=== PATIENT | female | born 1990 | race Caucasian/White ===

== ENCOUNTER 2023-02-26 10:07 | Outpatient (OUT) | payer SELFPAY ==
--- NOTE | 2023-02-26 10:09 | US_ITS ---
[address] [address] Patient Name: RUDI WINN MRN: [id number] date: 1990 Sex: F Assigned Patient Location: US Current Patient Location: US Accession/Order Number: [id number] Exam Date: 02/26/2023 10:10 Report Date: 02/26/2023 16:48 At the request of: NANCY GRIMES Procedure: US OB transvaginal EXAMINATION: US OB transvaginal HISTORY: MISSED PERIOD COMPARISON: No relevant comparison available. FINDINGS: Levi intrauterine gestation The uterus is normal, anteverted, anteflexed Gestational sac: 4.1 cm, 9 weeks 4 days CRL: 4.2 cm, 11 weeks 1 day Yolk Sac, 6.5 mm Heart rate: 168 bpm The ovaries are normal in appearance. The cervix is closed, 4.6 cm in length Ultrasound age: 11w1d Ultrasound dax: 09/16/23 IMPRESSION: Viable intrauterine gestation 11w1d Electronically authenticated by: IAN SIMON Date: 02/26/2023 16:48
== END 2023-02-26 10:08 | disposition home or self-care (01) ==
PROVIDERS: Visit Provider Obstetrics & Gynecology
DX: Z34.91 Encounter for supervision of normal pregnancy, unspecified, first trimester (principal); Z3A.11 11 weeks gestation of pregnancy; N92.6 Irregular menstruation, unspecified
CPT/HCPCS: 76817

== ENCOUNTER 2023-03-31 12:52 | Outpatient (OUT) | payer SELFPAY ==
[2023-03-31 13:48] LABS: Basophils Percent Auto 0.4 % (0.2-2.0); Eosinophils Absolute Auto 0.2 10^3/uL (0.0-0.7); Hematocrit 39.2 % (36.0-48.0); Hemoglobin 13.3 g/dL (12.0-16.0); Immature Granulocytes Abs Auto 0.05 10^3/uL (0.00-0.03); Immature Granulocytes Pct Auto 0.4 % (0.0-0.5); Lymphocytes Absolute Auto 1.5 10^3/uL (1.2-3.8); Lymphocytes Percent Auto 13.2 % (20.5-60.0); Mean Corpuscular HGB Conc 33.9 g/dL (29.9-35.2); Mean Corpuscular Hemoglobin 29.6 pg (26.7-34.0); Mean Corpuscular Volume 87.1 fL (81.0-99.0); Mean Platelet Volume 10.6 fL (9.5-13.5); Monocytes Absolute Auto 0.7 10^3/uL (0.3-0.8); Monocytes Percent Auto 6.5 % (1.7-12.0); Neutrophils Absolute Auto 8.8 10^3/uL (1.4-6.5); Neutrophils Percent Auto 77.5 % (43.0-75.0); Platelet Count 376 10^3/uL (150-450); Red Cell Distribution Width 13.2 % (11.0-15.0); White Blood Count 11.3 10^3/uL (4.0-11.0)
[2023-03-31 14:17] LABS: Estimated Average Glucose 100 mg/dL; Glycohemoglobin A1C 5.1 % (4.5-6.2)
[2023-03-31 14:32] LABS: Thyroid Stimulating Hormone 1.027 uIU/mL (0.358-3.740)
[2023-04-01 05:07] LABS: HCV Ab Non Reactive (Non Reactive); HIV Ab/p24 Ag Screen Non Reactive (Non Reactive); Rubella Antibodies, IgG 2.52 index (Immune >0.99)
[2023-04-01 06:09] LABS: HBsAg Screen Negative (Negative)
[2023-04-01 11:09] LABS: Rapid Plasma Reagin, Quant Non Reactive (NonRea<1:1)
== END 2023-03-31 12:53 | disposition home or self-care (01) ==
PROVIDERS: Visit Provider Obstetrics & Gynecology
DX: N91.2 Amenorrhea, unspecified (principal)
CPT/HCPCS: 36415; 83036; 84443; 85025; 86592; 86706; 86762; 86803; 86850; 86900; 86901; 87086; 87389

== ENCOUNTER 2023-04-01 19:55 | Outpatient (REF) | payer SELFPAY ==
[2023-04-07 15:08] LABS: Age Gdln ACOG Testing Note (.); HPV Aptima Negative (Negative); IGP, Aptima HPV, rfx 16/18,45 Note (.)
== END 2023-04-01 19:56 | disposition home or self-care (01) ==
LOC: LAB 19:55
PROVIDERS: Visit Provider Obstetrics & Gynecology
DX: Z01.419 Encounter for gynecological examination (general) (routine) without abnormal findings (principal)
CPT/HCPCS: 87624; G0145

== ENCOUNTER 2023-05-11 08:43 | Outpatient (OUT) | payer SELFPAY ==
--- NOTE | 2023-05-11 | US_ITS ---
[address] [address] Patient Name: RUDI WINN MRN: [id number] date: 1990 Sex: F Assigned Patient Location: US Current Patient Location: Accession/Order Number: [id number] Exam Date: 05/11/2023 08:49 Report Date: 05/12/2023 07:21 At the request of: NANCY GRIMES Procedure: US OB cervical length EXAMINATION: US OB anatomy HISTORY: ANATOMY COMPARISON: No relevant comparison available. TECHNIQUE: Transabdominal sonographic examination was performed for obstetrical and evaluation. FINDINGS: Number: 1 Heart Rate: 158.0 bpm H.B. /min Amniotic Fluid Volume: Subjectively normal Placental Location: POSTERIOR , grade 0. Placental edge 4.3 cm from the internal os Cervix Length: 4.6 cm , closed Normal anatomy: Lateral ventricles, cerebellum, posterior fossa, nose, lips, orbits, four-chamber heart, RVOT, LVOT, diaphragm, stomach, kidneys, abdominal cord insertion, bladder, umbilical arteries, three-vessel cord, spine, extremities BIOMETRY: BPD: 4.8 cm 20 weeks 3 days , 9% HC: 18.4 cm 20 weeks 5 days, 9% AC: 16.9 cm 21 weeks 6 days, 48% FL: 3.6 cm 21 weeks 3 days, 29% EFW:430.4 grams; 15 ounces, 34% FL/AC: 21.2 FL/BPD: 75.0 HC/AC: 1.1 GESTATIONAL AGE: Age by EDC: 21 weeks 5 days Age by current US: 21 weeks 1 days FATOU by current US: 09/20/2023 FATOU by EDC: 09/16/2023 US/US OB cervical length IMPRESSION: Normal anatomy scan *Reference: [facility] Practice Guideline for the performance of Obstetric Ultrasound Examinations, May 30, 2007. Electronically authenticated by: IAN SIMON Date: 05/12/2023 07:21
--- NOTE | 2023-05-11 | US_ITS ---
[address] [address] Patient Name: RUDI WINN MRN: [id number] date: 1990 Sex: F Assigned Patient Location: US Current Patient Location: Accession/Order Number: [id number] Exam Date: 05/11/2023 08:49 Report Date: 05/12/2023 07:21 At the request of: NANCY GRIMES Procedure: US OB anatomy EXAMINATION: US OB anatomy HISTORY: ANATOMY COMPARISON: No relevant comparison available. TECHNIQUE: Transabdominal sonographic examination was performed for obstetrical and evaluation. FINDINGS: Number: 1 Heart Rate: 158.0 bpm H.B. /min Amniotic Fluid Volume: Subjectively normal Placental Location: POSTERIOR , grade 0. Placental edge 4.3 cm from the internal os Cervix Length: 4.6 cm , closed Normal anatomy: Lateral ventricles, cerebellum, posterior fossa, nose, lips, orbits, four-chamber heart, RVOT, LVOT, diaphragm, stomach, kidneys, abdominal cord insertion, bladder, umbilical arteries, three-vessel cord, spine, extremities BIOMETRY: BPD: 4.8 cm 20 weeks 3 days , 9% HC: 18.4 cm 20 weeks 5 days, 9% AC: 16.9 cm 21 weeks 6 days, 48% FL: 3.6 cm 21 weeks 3 days, 29% EFW:430.4 grams; 15 ounces, 34% FL/AC: 21.2 FL/BPD: 75.0 HC/AC: 1.1 GESTATIONAL AGE: Age by EDC: 21 weeks 5 days Age by current US: 21 weeks 1 days FATOU by current US: 09/20/2023 FATOU by EDC: 09/16/2023 US/US OB anatomy IMPRESSION: Normal anatomy scan *Reference: [facility] Practice Guideline for the performance of Obstetric Ultrasound Examinations, May 30, 2007. Electronically authenticated by: IAN SIMON Date: 05/12/2023 07:21
== END 2023-05-11 08:44 | disposition home or self-care (01) ==
LOC: US 08:45
PROVIDERS: Visit Provider Obstetrics & Gynecology
DX: Z34.92 Encounter for supervision of normal pregnancy, unspecified, second trimester (principal)
CPT/HCPCS: 76805; 76817

== ENCOUNTER 2023-09-02 19:40 | Outpatient (REF) | payer SELFPAY | END 2023-09-02 19:41 | disposition home or self-care (01) | LOC: LAB 19:40 | PROVIDERS: Visit Provider Physician Assistant | DX: Z34.93 Encounter for supervision of normal pregnancy, unspecified, third trimester (principal) | CPT/HCPCS: 87081 ==

== ENCOUNTER 2023-09-03 12:07 | Observation (INO) | payer BC, SELFPAY ==
--- OUTSIDE RECORDS SUMMARY | 2023-09-03 12:11 | XMS_ITS | CCD ---
Author Name Unknown Address [address] [place] [address] Organization [facility] Care Team Providers Care Healthcare Educator Name Role Phone KAITLYNN TRISTIN Unavailable Unavailable KAITLYNN TRISTIN Unavailable Unavailable Tamy Cyndy Unavailable Problems Active Problems Problem Classification Problem Date Documented Da te Episodic/Chronic Abdominal pain (2 sources) Unspecified abdominal pain; Translations: [Unspecified abdominal pain] Onset: 03-03-2018 Episodic Past or Other Problems Problem Classification Problem Date Documented Da te Episodic/Chronic Unclassified (1 source) Contact with and (suspected) exposure to covid-19 Z20.822 Onset: 04-08-2022 Resolved: 04-08-2022 Results Test Name Value Interpretation Reference Range Facil ity SARS-CoV-2 (COVID-19) RNA NA A+probe Ql (Resp)on 04-08-2022 SARS-CoV-2 (COVID-19) RNA CASSIE+probe Ql (Unsp spec) Negative [facility] Other Ambulatory Patient Education on 08-09-2019 Ambulatory Patient Education Patient Education Materials Name: Marleen Moon Current Date: 08/09/2019 12:09:31 [place] : 1990 The following sheet(s) are the Patient Education Leaflets for Marleen Moon Oncology Breast Health: Breast Self-Awareness What is breast self-awareness? Breast self-awareness is knowing how your breasts normally look and feel. Your breasts change as you go through different stages of your life. So it's important to learn what is normal for your breasts. Breast self-awareness helps you notice any changes in your breasts right away. Report any changes to your healthcare provider. Why is breast self-awareness important? Many experts now say that women should focus on breast self-awareness instead of doing a breast self-examination (BSE). These experts include the [place] [employer], the U.S. Preventive Services Task Force, and the [place] [employer] of Obstetricians and Gynecologists. Some experts even advise not teaching women to do a BSE. That's because research hasn't shown a clear benefit to doing BSEs. Breast self-awareness is different than a BSE. Breast self-awareness isn't about following a certain method and schedule. It's about knowing what's normal for your breasts. That way you can notice even small changes right away. If you see any changes, report them to your healthcare provider. Changes to look for Call your healthcare provider if you find any changes in your breasts that concern you. These changes may include: ? A lump ? Nipple discharge other than breastmilk, especially a bloody discharge ? Swelling ? A change in size or shape ? Skin irritation, such as redness, thickening, or dimpling of the skin ? Swollen lymph nodes in the armpit ? Nipple problems, such as pain or redness If you find a lump Contact your provider if you find lumpiness in one breast, feel something different in the tissue, or feel a definite lump. Sometimes lumpiness may be due to menstrual changes. But there may be reason for concern. Your provider may want to see you right away if you have: ? Nipple discharge that is bloody ? Skin changes on your breast, such as dimpling or puckering It's normal to be upset if you find a lump. But it's important to contact your provider right away. Remember that most breast lumps are benign. This means they are not cancer. ? 1602-0154 [employer]. [address] [place] [address], [place] [id number]. All rights reserved. This information is not intended as a substitute for professional medical care. Always follow your healthcare professional's instructions. Normal [facility] Urinalysis w/ Microon 2017 ----- Normal [facility] Comment on above: Performed By: #### U [facility] ####[address] [place] [address] Acetaminophen mass conc Negative Normal NEG [facility] Comment on above: Performed By: #### U [facility] ####[address] [place] [address] Bilirubin (direct) Negative Normal NEG [facility] Comment on above: Performed By: #### U [facility] ####[address] [place] [address] Hemoglobin mass conc (Bld) Negative Normal NEG [facility] Comment on above: Performed By: #### U AM[facility] ####[address] [place] [address] Mucus Strands TRACE Abnormal [facility] Comment on above: Performed By: #### U AMIC ####[address] [place] [address] Nitrite,Ur Negative Normal NEG [facility] Comment on above: Performed By: #### U AM[facility] ####[address] [place] [address] Turbidity CLEAR Normal CLEAR [facility] Comment on above: Performed By: #### U [facility] ####[address] [place] [address] Urine WBC's 0 TO 2 Normal 0-5 [facility] Comment on above: Performed By: #### U [facility] ####[address] [place] [address] Urine, amorphous sediment presence in sediment TRACE Abnormal [facility] Comment on above: Performed By: #### U AMIC ####[address] [place] [address] Urine, bacteria in sediment TRACE Abnormal [facility] Comment on above: Performed By: #### U AM[facility] ####[address] [place] [address] Urine, color YELLOW Normal YEL [facility] Comment on above: Performed By: #### U [facility] ####[address] [place] [address] Urine, epithelial cells in sediment 0 TO 2 Normal 0-25 [facility] Comment on above: Performed By: #### U [facility] ####[address] [place] [address] Urine, erythrocytes 0 TO 2 Normal 0-2 [facility] Comment on above: Performed By: #### U [facility] ####[address] [place] [address] Urine, glucose presence Negative Normal NEG [facility] Comment on above: Performed By: #### U [facility] ####[address] [place] [address] Urine, leukocyte esterase presence Negative Normal NEG [facility] Comment on above: Performed By: #### U [facility] ####[address] [place] [address] Urine, pH 6.5 [pH] Normal 5.0-9.0 [facility] Comment on above: Performed By: #### U AM[facility] ####[address] [place] [address] Urine, protein presence Negative Normal NEG [facility] Comment on above: Performed By: #### U [facility] ####[address] [place] [address] Urine, specific gravity 1.025 High 1.010-1.020 [facility] Comment on above: Performed By: #### U [facility] ####[address] [place] [address] Urobilinogen,Ur Normal Normal NORM [facility] Comment on above: Performed By: #### U AMIC ####[address] [place] [address] Comment NOT REPORTED Normal [facility] Comment on above: Performed By: #### U AMIC ####[address] [place] [address] Epithelial, Renal NOT REPORTED Normal 0 [facility] Comment on above: Performed By: #### U [facility] ####[address] [place] [address] Other Observations NOT REPORTED Normal NREQ [facility] Comment on above: Performed By: #### U AMIC ####[address] [place] [address] Trichomonas NOT REPORTED Normal NONE [facility] Comment on above: Performed By: #### U AMIC ####[address] [place] [address] Urine, casts in sediment NOT REPORTED Normal [facility] Comment on above: Performed By: #### U AM[facility] ####[address] [place] [address] Urine, crystals in sediment NOT REPORTED Normal NONE [facility] Comment on above: Performed By: #### U [facility] ####[address] [place] [address] Urine, yeast presence in sediment NOT REPORTED Normal NONE [facility] Comment on above: Performed By: #### U AM[facility] ####[address] [place] [address] Encounters Encounter Date Encounter Type Care Provider Facility Start: 04-08-2022 End: 04-08-2022 ambulatory Cyndy Morelos Other [facility] Other Start: 04-08-2022 Office outpatient vi sit 15 minutes Cyndy Morelos [facility] Start: 03-03-2018 End: 03-04-2018 Ambulatory TRISTIN CALDERÓN [facility] Procedures Date Procedure Procedure Detail Performing Clinician Start: 03-03-2018 DISCHARGE PATIENT CARLOTA CALDERÓN Start: 03-03-2018 Urnls dip stick/tabl et reagent auto microscopy TRISTIN CALDERÓN Start: 03-03-2018 ASSESS HEART TONES TRISTIN CALDERÓN Start: 03-03-2018 PATIENT STATUS (DIRECT) TRISTIN CALDERÓN Start: 03-03-2018 VAGINAL EXAM TRISTIN WHITLOCK Payers Date Payer Category Payer Policy ID [facility] [id number] Social History Date Type Detail Facility Sex Assigned At [facility] Other Evaluation note 04-08-2022 Note Date & Type Note Facility 04-08-2022 Evaluation note Encounter Date Diagnosis Assessment Notes Mar, Contact with and (suspected) exposure to covid-19 (ICD-10 - Z20.822) Mar, Other Additional time spent conducting pre-visit phone call, screening for symptoms, instructions on social distancing, application and removal of PPE, and cleaning of examination room, equipment and supplies was performed. Patient education given for testing methodology and results. Patient care instructions given in writing by [facility] document. [facility] Other Summary Purpose Family History No Family History Records FoundNo Family History Records Found Advance Directives No Advanced Directives Records FoundNo Advanced Directives Records Found Additional Source Comments INFORMATION SOURCE (unrecogn ized section and content) DATE CREATED AUTHOR 03/03/2018 Kelsey tee DATE CREATED AUTHOR AUTHOR'S ORGANIZ ATION 08/15/2019 [facility] REASON FOR VISIT (unrecogniz ed section and content) AMARJIT LIND, RYAN FOR RECORDS PERTAINING TO PATIENTS WHO ARE OR HAVE BEEN ENROLLED IN A CHEMICAL DEPENDENCY/SUBSTANCEABUSE PROGRAM, SOME INFORMATION MAY BE OMITTED. This clinical summary was aggregated from multiple sources. Caution should be exercised in using it in the provision of clinical care. This summary normalizes information from multiple sources, and as a consequence, information in this document may materially change the coding, format and clinical context of patient data. In addition, data may be omitted in some cases. CLINICAL DECISIONS SHOULD BE BASED ON THE PRIMARY CLINICAL RECORDS. [facility] [employer] provides no warranty or guarantee of the accuracy or completeness of information in this document.
--- OUTSIDE RECORDS SUMMARY | 2023-09-03 12:18 | XMS_ITS | CCD ---
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 These experts include the [place] [employer], the U.S. Preventive Services Task Force, and the [place] [employer] of Obstetricians and Gynecologists. Some experts [...] This means they are not cancer. ? [id number] [employer]. [address] [place] [address], [place] [id number]. All rights reserved. This information is not intended as a substitute for professional medical care. Always follow your healthcare professional's instructions. Normal [facility] Urinalysis w/ Microon 2017 ----- Normal [facility] Comment on above: Performed By: #### U [facility] ####[address] [place] [address] Acetaminophen mass conc Negative Normal NEG [facility] Comment on above: Performed By: #### U AMIC ####[address] [place] [address] Bilirubin (direct) Negative Normal NEG [facility] Comment on above: Performed By: #### U AMIC ####[address] [place] [address] Hemoglobin mass conc (Bld) Negative Normal NEG [facility] Comment on above: Performed By: #### U AM[facility] ####[address] [place] [address] Mucus Strands TRACE Abnormal [facility] Comment on above: Performed By: #### U AMIC ####[address] [place] [address] Nitrite,Ur Negative Normal NEG [facility] Comment on above: Performed By: #### U AMIC ####[address] [place] [address] Turbidity CLEAR Normal CLEAR [facility] Comment on above: Performed By: #### U AMIC ####[address] [place] [address] Urine WBC's 0 TO 2 Normal 0-5 [facility] Comment on above: Performed By: #### U AMIC ####[address] [place] [address] Urine, amorphous sediment presence in sediment TRACE Abnormal [facility] Comment on above: Performed By: #### U AMIC ####[address] [place] [address] Urine, bacteria in sediment TRACE Abnormal [facility] Comment on above: Performed By: #### U AMIC ####[address] [place] [address] Urine, color YELLOW Normal YEL [facility] Comment on above: Performed By: #### U AMIC ####[address] [place] [address] Urine, epithelial cells in sediment 0 TO 2 Normal 0-25 [facility] Comment on above: Performed By: #### U AMIC ####[address] [place] [address] Urine, erythrocytes 0 TO 2 Normal 0-2 [facility] Comment on above: Performed By: #### U AMIC ####[address] [place] [address] Urine, glucose presence Negative Normal NEG [facility] Comment on above: Performed By: #### U AMIC ####[address] [place] [address] Urine, leukocyte esterase presence Negative Normal NEG [facility] Comment on above: Performed By: #### U AMIC ####[address] [place] [address] Urine, pH 6.5 [pH] Normal 5.0-9.0 [facility] Comment on above: Performed By: #### U AMIC ####[address] [place] [address] Urine, protein presence Negative Normal NEG [facility] Comment on above: Performed By: #### U AMIC ####[address] [place] [address] Urine, specific gravity 1.025 High 1.010-1.020 [facility] Comment on above: Performed By: #### U AMIC ####[address] [place] [address] Urobilinogen,Ur Normal Normal NORM [facility] Comment on above: Performed By: #### U AMIC ####[address] [place] [address] Comment NOT REPORTED Normal [facility] Comment on above: Performed By: #### U AMIC ####[address] [place] [address] Epithelial, Renal NOT REPORTED Normal 0 [facility] Comment on above: Performed By: #### U AMIC ####[address] [place] [address] Other Observations NOT REPORTED Normal NREQ [facility] Comment on above: Performed By: #### U AMIC ####[address] [place] [address] Trichomonas NOT REPORTED Normal NONE [facility] Comment on above: Performed By: #### U AMIC ####[address] [place] [address] Urine, casts in sediment NOT REPORTED Normal [facility] Comment on above: Performed By: #### U AMIC ####[address] [place] [address] Urine, crystals in sediment NOT REPORTED Normal NONE [facility] Comment on above: Performed By: #### U AMIC ####[address] [place] [address] Urine, yeast presence in sediment NOT REPORTED Normal NONE [facility] Comment on above: Performed By: #### U AMIC ####[address] [place] [address] Encounters Encounter Date Encounter Type Care Provider Facility Start: 04-08-2022 End: 04-08-2022 ambulatory Cyndy Morelos Other [facility] Other Start: 04-08-2022 Office outpatient vi sit 15 minutes Cyndy Morelos [facility] Start: 03-03-2018 End: 03-04-2018 Ambulatory TRISTIN CALDERÓN [facility] Procedures Date Procedure Procedure Detail Performing Clinician Start: 03-03-2018 DISCHARGE PATIENT CARLOTA CALDERÓN Start: 03-03-2018 Urnls dip stick/tabl et reagent auto microscopy TRISTIN CALDERÓN Start: 03-03-2018 ASSESS HEART TONES TRISTIN CALDERÓN Start: 03-03-2018 PATIENT STATUS (DIRECT) TRISTIN CALDERÓN Start: 03-03-2018 VAGINAL EXAM TRISTIN WHITLOCK Payers Date Payer Category Payer Policy ID [facility] [id number] Social History Date Type Detail Facility Sex Assigned At [facility] Other Evaluation note 04-08-2022 Note Date & [...] Patient care instructions given in writing by [facility] Care [facility] Home document. [facility] Other Summary Purpose Family History No Family History Records FoundNo Family History Records Found Advance Directives No Advanced Directives Records FoundNo Advanced Directives Records Found Additional Source Comments INFORMATION SOURCE (unrecogn ized section and content) DATE CREATED AUTHOR 03/03/2018 Kelsey tee DATE CREATED AUTHOR AUTHOR'S ORGANIZ ATION 08/15/2019 [facility] REASON FOR VISIT (unrecogniz ed section and [...] BE BASED ON THE PRIMARY CLINICAL RECORDS. [facility] [employer] provides no warranty or guarantee of the accuracy or completeness of information in this document.
[2023-09-03 16:35] LABS: Bilirubin Urine NEGATIVE (NEGATIVE); Blood Urine NEGATIVE (NEGATIVE); Clarity Urine CLEAR (CLEAR); Color Urine LT. YELLOW (YELLOW); Glucose Urine UA NEGATIVE (NEGATIVE); Ketones Urine 15 mg/dL (NEGATIVE); Leukocyte Esterase Urine NEGATIVE (NEGATIVE); Nitrite Urine NEGATIVE (NEGATIVE); Protein Urine NEGATIVE (NEG/TRACE); Specific Gravity Urine 1.015 (1.005-1.025); Urine Microscopic Indicated NO; Urobilinogen Urine 0.2 EU/dL (0.2-1.0); pH Urine 6.5 (5.0-9.0)
== END 2023-09-03 19:45 | disposition home or self-care (01) ==
PROVIDERS: Admitting Provider Obstetrics & Gynecology; Visit Provider Obstetrics & Gynecology
DX: O47.9 False labor, unspecified (principal); Z3A.00 Weeks of gestation of pregnancy not specified
CPT/HCPCS: 59025; 81003; G0378; G0379

== ENCOUNTER 2023-09-08 09:29 | Observation (INO) | payer BC, SELFPAY ==
--- OUTSIDE RECORDS SUMMARY | 2023-09-08 09:35 | XMS_ITS | CCD ---
Author Name Unknown Address [id number] [place] [address] Organization [facility] Care Team Providers Care Flap Lining Binder Name Role Phone TRISTIN CALDERÓN Unavailable Unavailable TRISTIN CALDERÓN Unavailable Unavailable Cyndy Morelos Unavailable MAURO GONZALEZ Attending Unavailable Problems Active Problems Problem Classification Problem [...] (COVID-19) RNA CASSIE+probe Ql (Unsp spec) Negative [facility] Other Ambulatory Patient Education on 08-09-2019 Ambulatory Patient Education Patient Education Materials Name: Rowesa Rothman Marleen Kianna Current Date: 08/09/2019 12:09:31 [place] : 1990 The following sheet(s) are the Patient Education Leaflets for [facility] Breast Health: Breast Self-Awareness What is [...] breast self-examination (BSE). These experts include the [place] [employer], the [place]. Preventive Services Task Force, and the [place] Congress of Obstetricians and Gynecologists. Some experts [...] This means they are not cancer. ? [id number] [employer] [address] [place] [address], [place] [address]. All rights reserved. This information is not intended as a substitute for professional medical care. Always follow your healthcare professional's instructions. Normal [facility] Urinalysis w/ Microon 2017 ----- Normal [facility] Comment on above: Performed By: #### U AMIC ####[address] [place] [address] Acetaminophen mass conc Negative Normal NEG [facility] Comment on above: Performed By: #### U AMIC ####[address] [place] [address] Bilirubin (direct) Negative Normal NEG [facility] Comment on above: Performed By: #### U AMIC ####[address] [place] [address] Hemoglobin mass conc (Bld) Negative Normal NEG [facility] Comment on above: Performed By: #### U AMIC ####[address] [place] [address] Mucus Strands TRACE Abnormal [facility] Comment on above: Performed By: #### U AMIC ####[address] [place] [address] Nitrite,Ur Negative Normal NEG [facility] Comment on above: Performed By: #### U AMIC ####[address] [place] [address] Turbidity CLEAR Normal CLEAR [facility] Comment on above: Performed By: #### U AMIC ####[address] [place] [address] Urine WBC's 0 TO 2 Normal 0-5 [facility] Comment on above: Performed By: #### U AMIC ####[address] [place] [address] Urine, amorphous sediment presence in sediment TRACE Abnormal [facility] Comment on above: Performed By: #### U AMIC ####[address] [place] [address] Urine, bacteria in sediment TRACE Abnormal NONE [facility] Comment on above: Performed By: #### U AMIC ####[address] [place] [address] Urine, color YELLOW Normal YEL [facility] Comment on above: Performed By: #### U AMIC ####[address] [place] [address] Urine, epithelial cells in sediment 0 TO 2 Normal 0-25 [facility] Comment on above: Performed By: #### U AMIC ####[address] [place] [address] Urine, erythrocytes 0 TO 2 Normal 0-2 [facility] Comment on above: Performed By: #### U AMIC ####[address] [place] [address] Urine, glucose presence Negative Normal NEG [facility] Comment on above: Performed By: #### U AMIC ####[address] [place] [address] Urine, leukocyte esterase presence Negative Normal NEG [facility] Comment on above: Performed By: #### U AMIC ####[address] [place] [address] Urine, pH 6.5 [pH] Normal 5.0-9.0 [facility] Comment on above: Performed By: #### U AMIC ####[address] [place] [address] Urine, protein presence Negative Normal NEG [facility] Comment on above: Performed By: #### U AMIC ####[address] [place] [address] Urine, specific gravity 1.025 High 1.010-1.020 [facility] Comment on above: Performed By: #### U AMIC ####[address] [place] [address] Urobilinogen,Ur Normal Normal NORM [facility] Comment on above: Performed By: #### U AMIC ####[address] [place] [address] Comment NOT REPORTED Normal [facility] Comment on above: Performed By: #### U AMIC ####[address] [place] [address] Epithelial, Renal NOT REPORTED Normal 0 [facility] Comment on above: Performed By: #### U AMIC ####[address] [place] [address] Other Observations NOT REPORTED Normal NREQ [facility] Comment on above: Performed By: #### U AMIC ####[address] [place] [address] Trichomonas NOT REPORTED Normal NONE [facility] Comment on above: Performed By: #### U AMIC ####[address] [place] [address] Urine, casts in sediment NOT REPORTED Normal [facility] Comment on above: Performed By: #### U AMIC ####[address] [place] [address] Urine, crystals in sediment NOT REPORTED Normal NONE [facility] Comment on above: Performed By: #### U AMIC ####[address] [place] [address] Urine, yeast presence in sediment NOT REPORTED Normal NONE [facility] Comment on above: Performed By: #### U AMIC ####[address] [place] [address] Encounters Encounter Date Encounter Type Care Provider Facility Start: 09-02-2023 End: 09-02-2023 ambulatory MAURO GONZALEZ Not Available Start: 04-08-2022 End: 04-08-2022 ambulatory Cyndy Morelos Other [facility] Other Start: 04-08-2022 Office outpatient vi sit 15 minutes Cyndy Morelos [facility] Start: 03-03-2018 End: 03-04-2018 [facility]ulatory [facility] Procedures Date Procedure Procedure Detail Performing Clinician Start: 03-03-2018 DISCHARGE PATIENT CARLOTA CALDERÓN Start: 03-03-2018 Urnls dip stick/tabl et reagent auto microscopy TRISTIN CALDERÓN Start: 03-03-2018 ASSESS HEART TONES TRISTIN CALDERÓN Start: 03-03-2018 PATIENT STATUS (DIRECT) TRISTIN CALDERÓN Start: 03-03-2018 VAGINAL EXAM TRISTIN WHITLOCK Payers Date Payer Category Payer [facility] [id number] 1990 Unknown [id number] Social History Date Type Detail Facility Sex Assigned At [facility] Other Evaluation note 04-08-2022 Note Date & [...] Patient care instructions given in writing by [facility] Care At Home document. [facility] Other Summary Purpose Family History No Family History Records FoundNo Family History Records FoundNo Family History Records Found Advance Directives No Advanced Directives Records FoundNo Advanced Directives Records FoundNo Advanced Directives Records Found Additional Source Comments INFORMATION SOURCE (unrecogn ized section and content) DATE CREATED AUTHOR 03/03/2018 Kelsey Gilliam pitannabel DATE CREATED AUTHOR AUTHOR'S ORGANIZ ATION 08/15/2019 [facility] DATE CREATED AUTHOR AUTHOR'S ORGANIZ ATION 09/04/2023 [facility] d[facility] Specialists EPIC REASON FOR VISIT (unrecogniz ed section and content) AMARJIT LIND, EXPOSED FOR RECORDS PERTAINING TO PATIENTS WHO ARE [...] BE BASED ON THE PRIMARY CLINICAL RECORDS. [facility]. provides no warranty or guarantee of the accuracy or completeness of information in this document.
[2023-09-08 09:45] VITALS: BP 135/77; PULSE 95; RESP 16
[2023-09-08 10:05] VITALS: BP 109/62; PULSE 93
[2023-09-08 10:20] VITALS: BP 106/65; PULSE 86
[2023-09-08 10:29] LABS: Bilirubin Urine NEGATIVE (NEGATIVE); Blood Urine TRACE-I (NEGATIVE); Clarity Urine CLEAR (CLEAR); Color Urine YELLOW (YELLOW); Glucose Urine UA NEGATIVE (NEGATIVE); Ketones Urine 15 mg/dL (NEGATIVE); Leukocyte Esterase Urine NEGATIVE (NEGATIVE); Nitrite Urine NEGATIVE (NEGATIVE); Protein Urine NEGATIVE (NEG/TRACE); pH Urine 6.5 (5.0-9.0)
[2023-09-08 10:30] LABS: Urine Microscopic Indicated YES
[2023-09-08 10:34] VITALS: BP 101/64; PULSE 88
[2023-09-08 10:38] LABS: Bacteria Urine TRACE #/HPF (NONE SEEN); Crystals Seen? None Seen #/HPF (None Seen); Mucus Urine TRACE (NONE SEEN); Squamous Epithelial Cell Urine FEW #/LPF (NONE/RARE); WBC Urine 0-2 #/HPF (NONE SEEN)
[2023-09-08 10:39] LABS: Cast Seen? NONE SEEN #/LPF (NONE SEEN); Urine Culture Indicated NO
[2023-09-08 10:50] VITALS: BP 103/65; PULSE 85
[2023-09-08 11:05] VITALS: BP 107/64; PULSE 78
== END 2023-09-08 12:54 | disposition home or self-care (01) ==
PROVIDERS: Admitting Provider Obstetrics & Gynecology; Visit Provider Obstetrics & Gynecology
DX: O26.893 Other specified pregnancy related conditions, third trimester (principal); M54.9 Dorsalgia, unspecified; R51.9 Headache, unspecified; R11.0 Nausea; H53.8 Other visual disturbances; Z3A.39 39 weeks gestation of pregnancy
CPT/HCPCS: 59025; 81001; G0378; G0379

== ENCOUNTER 2023-09-09 17:12 | Inpatient (IN) | payer BC, SELFPAY ==
[2023-09-09] VITALS (12 sets, daily range): BP systolic 101–116; BP diastolic 62–70; PULSE 76–93; RESP 16; TEMP 36.9
--- OUTSIDE RECORDS SUMMARY | 2023-09-09 17:16 | XMS_ITS | CCD ---
Author Name Unknown Address [address] [place] [address] Organization [facility] Care Team Providers Care Director Executive Communications Name Role Phone TRISTIN CALDERÓN Unavailable Unavailable [...] (COVID-19) RNA CASSIE+probe Ql (Unsp spec) Negative [facility] Other Ambulatory Patient Education on 08-09-2019 Ambulatory [...] breast self-examination (BSE). These experts include the [place] Cancer Society, the U.S. Preventive Services Task Force, and the [place] Congress of Obstetricians and Gynecologists. Some experts [...] This means they are not cancer. ? [id number] [employer] [address] [place] [address], [place] [address]. All rights reserved. This information is not intended as a substitute for professional medical care. Always follow your healthcare professional's instructions. Normal [facility] Urinalysis w/ Microon 2017 ----- Normal [facility] Comment on above: Performed By: #### U AMIC ####[address] [place] [address] Acetaminophen mass conc Negative Normal NEG [facility] Comment on above: Performed By: #### U AMIC ####[address] [place] [address] Bilirubin (direct) Negative Normal NEG [facility] Comment on above: Performed By: #### U AMIC ####[address] [place] [address] Hemoglobin mass conc (Bld) Negative Normal NEG [facility] Comment on above: Performed By: #### U AMIC ####[address] [place] [address] Mucus Strands TRACE Abnormal [facility] Comment on above: Performed By: #### U AMIC ####[address] [place] [address] Nitrite,Ur Negative Normal NEG [facility] Comment on above: Performed By: #### U AMIC ####[address] [place] [address] Turbidity CLEAR Normal CLEAR [facility] Comment on above: Performed By: #### U AMIC ####[address] [place] [address] Urine WBC's 0 TO 2 Normal 0-5 [facility] Comment on above: Performed By: #### U AMIC ####[address] [place] [address] Urine, amorphous sediment presence in sediment TRACE Abnormal [facility] Comment on above: Performed By: #### U AMIC ####[address] [place] [address] Urine, bacteria in sediment TRACE Abnormal NONE [facility] Comment on above: Performed By: #### U AMIC ####[address] [place] [address] Urine, color YELLOW Normal YEL [facility] Comment on above: Performed By: #### U AMIC ####[address] [place] [address] Urine, epithelial cells in sediment 0 TO 2 Normal 0-25 [facility] Comment on above: Performed By: #### U AMIC ####[address] [place] [address] Urine, erythrocytes 0 TO 2 Normal 0-2 [facility] Comment on above: Performed By: #### U AMIC ####[address] [place] [address] Urine, glucose presence Negative Normal NEG [facility] Comment on above: Performed By: #### U AMIC ####[address] [place] [address] Urine, leukocyte esterase presence Negative Normal NEG [facility] Comment on above: Performed By: #### U AMIC ####[address] [place] [address] Urine, pH 6.5 [pH] Normal 5.0-9.0 [facility] Comment on above: Performed By: #### U AMIC ####[address] [place] [address] Urine, protein presence Negative Normal NEG [facility] Comment on above: Performed By: #### U AMIC ####[address] [place] [address] Urine, specific gravity 1.025 High 1.010-1.020 [facility] Comment on above: Performed By: #### U AMIC ####[address] [place] [address] Urobilinogen,Ur Normal Normal NORM [facility] Comment on above: Performed By: #### U AMIC ####[address] [place] [address] Comment NOT REPORTED Normal [facility] Comment on above: Performed By: #### U AMIC ####[address] [place] [address] Epithelial, Renal NOT REPORTED Normal 0 [facility] Comment on above: Performed By: #### U AMIC ####[address] [place] [address] Other Observations NOT REPORTED Normal NREQ [facility] Comment on above: Performed By: #### U AMIC ####[address] [place] [address] Trichomonas NOT REPORTED Normal NONE [facility] Comment on above: Performed By: #### U AMIC ####[address] [place] [address] Urine, casts in sediment NOT REPORTED Normal [facility] Comment on above: Performed By: #### U AMIC ####[address] [place] [address] Urine, crystals in sediment NOT REPORTED Normal NONE [facility] Comment on above: Performed By: #### U AMIC ####[address] [place] [address] Urine, yeast presence in sediment NOT REPORTED Normal NONE [facility] Comment on above: Performed By: #### U AMIC ####[address] [place] [address] Encounters Encounter Date Encounter Type Care Provider Facility Start: 09-02-2023 End: 09-02-2023 ambulatory MAURO GONZALEZ Not Available Start: 04-08-2022 End: 04-08-2022 ambulatory Cyndy Morelos Other [facility] Other Start: 04-08-2022 Office outpatient vi sit [...] TRISTIN WHITLOCK Payers Date Payer Category Payer [facility] [id number] 1990 Unknown [id number] Social History Date Type Detail Facility Sex Assigned At [facility] Other Evaluation note 04-08-2022 Note Date & [...] Patient care instructions given in writing by [facility] Care At Home document. [facility] Other Summary Purpose Family History No Family History Records FoundNo Family History Records FoundNo Family History Records Found Advance Directives No Advanced Directives Records FoundNo Advanced Directives Records FoundNo Advanced Directives Records Found Additional Source Comments INFORMATION SOURCE (unrecogn ized section and content) DATE CREATED AUTHOR 03/03/2018 Kelsey Gilliam pitannabel DATE CREATED AUTHOR AUTHOR'S ORGANIZ ATION 08/15/2019 [facility] DATE CREATED AUTHOR AUTHOR'S ORGANIZ ATION 09/04/[address] [facility] dical Specialists EPIC REASON FOR [...] BE BASED ON THE PRIMARY CLINICAL RECORDS. [facility]. provides no warranty or guarantee of the accuracy or completeness of information in this document.
[2023-09-09 18:22] LABS: Hematocrit 29.9 % (36.0-48.0); Hemoglobin 9.1 g/dL (12.0-16.0); Mean Corpuscular HGB Conc 30.4 g/dL (29.9-35.2); Mean Corpuscular Hemoglobin 22.8 pg (26.7-34.0); Mean Corpuscular Volume 74.8 fL (81.0-99.0); Mean Platelet Volume 10.1 fL (9.5-13.5); Platelet Count 373 10^3/uL (150-450); White Blood Count 9.5 10^3/uL (4.0-11.0)
[2023-09-09 18:31] LABS: Amphetamine Screen Urine NEGATIVE (NEGATIVE); Barbiturates Screen Urine NEGATIVE (NEGATIVE); Benzodiazepines Screen Urine NEGATIVE (NEGATIVE); Buprenorphine Screen Urine NEGATIVE (NEGATIVE); Cannabinoid Screen Urine NEGATIVE (NEGATIVE); Cocaine Screen Urine NEGATIVE (NEGATIVE); Methadone Screen Urine NEGATIVE (NEGATIVE); Methamphetamines Screen Urine NEGATIVE (NEGATIVE); Opiate Screen Urine NEGATIVE (NEGATIVE); Oxycodone Screen Urine NEGATIVE (NEGATIVE); Phencyclidine Screen Urine NEGATIVE (NEGATIVE); Tricyclic Antidepressant Urine NEGATIVE (NEGATIVE)
[2023-09-09] MEDS: DINOPROSTONE 10 MG VAG INSERT.ER VAGINAL (20:45)
[2023-09-10] VITALS (54 sets, daily range): BP systolic 89–194; BP diastolic 51–92; PULSE 66–129; RESP 16; TEMP 36.4–37.1
[2023-09-10] MEDS: ACETAMINOPHEN 500 MG TABLET 1000 MG PO (01:45)
[2023-09-10] MEDS: OXYTOCIN/0.9 % SODIUM CHLORIDE 10 UNITS/500 ML PLAST..BAG 6 UNIT IV (07:00)
[2023-09-10] MEDS: 0.9 % SODIUM CHLORIDE 1,000 ML 125 ML IV ×3 (07:39→13:32)
[2023-09-10] MEDS: ROPIVACAINE HCL/PF 400 MG/200 ML PREMIX 6 MG EPIDURAL (12:25)
[2023-09-10] MEDS: LIDOCAINE HCL 2% PF 100 MG/5 ML VIAL INJ (12:25)
[2023-09-10] MEDS: FENTANYL CITRATE/PF 100 MCG/2 ML VIAL EPIDURAL (12:26)
--- NOTE | 2023-09-10 16:27 | PM.OBPRCVD ---
Procedure Intrapartal events: None Induction method: per misoprostol protocol Delivery augmentation: rupture of membranes and pitocin Delivery monitor: external FHT and external uterine Route of delivery: Episiotomy Description: none Laceration description: none Estimated blood loss (mL): 200 Anesthesia type: Epidural Disposition: floor Delivery date: 09/10/23 Gender: male presentation: vertex Placental delivery description: Spontaneous cord description: 3 Vessels
--- NOTE | 2023-09-11 | P.OBPN_ITS ---
OB - PN: Subj Subjective Patient comments: no complaints and pain well controlled [place] status: doing well Exam Constitutional Vital Signs, click to edit/add: Last Vital Signs Temp 98.7 F 09/10/23 21:20 Pulse 86 09/10/23 21:28 Resp 16 09/10/23 21:20 BP 108/61 09/10/23 21:28 O2 Del Method Room Air 09/10/23 21:20 Documenting provider has reviewed patient's vital signs: yes Common normals: no apparent distress Respiratory Common normals: normal respiratory effort and clear to auscultation bilaterally Cardio Common normals: regular rate and regular rhythm GI Common normals: Normal to inspection, nondistended, normoactive bowel sounds present Extremity Common normals: normal to inspection and no clubbing, cyanosis or edema OB - PN: A/P Plan - Vaginal Delivery day: 1 Plan: routine care Time Spent with Patient Time: Total time spent is greater than 50% in coordination of care (as documented) at patient's floor/unit and/or counseling patient: Total time spent with greater than 50% in coordination of care (as documented) at patient's floor/unit and/or counseling patient: less than 15 minutes
[2023-09-11 00:28] VITALS: BP 114/69; PULSE 71
[2023-09-11 00:30] VITALS: RESP 16; RESP 18; TEMP 37.1
[2023-09-11 05:53] LABS: Basophils Percent Auto 0.3 % (0.2-2.0); Eosinophils Absolute Auto 0.2 10^3/uL (0.0-0.7); Eosinophils Percent Auto 1.6 % (0.9-7.0); Hematocrit 30.2 % (36.0-48.0); Immature Granulocytes Abs Auto 0.06 10^3/uL (0.00-0.03); Immature Granulocytes Pct Auto 0.5 % (0.0-0.5); Lymphocytes Absolute Auto 2.1 10^3/uL (1.2-3.8); Mean Corpuscular HGB Conc 29.8 g/dL (29.9-35.2); Mean Corpuscular Hemoglobin 22.6 pg (26.7-34.0); Mean Corpuscular Volume 75.9 fL (81.0-99.0); Mean Platelet Volume 10.7 fL (9.5-13.5); Monocytes Absolute Auto 1.2 10^3/uL (0.3-0.8); Monocytes Percent Auto 9.4 % (1.7-12.0); Neutrophils Absolute Auto 8.8 10^3/uL (1.4-6.5); Neutrophils Percent Auto 71.2 % (43.0-75.0); Platelet Count 360 10^3/uL (150-450); Red Blood Count 3.98 10^6/uL (4.20-5.40); White Blood Count 12.4 10^3/uL (4.0-11.0)
--- NOTE | 2023-09-11 07:16 | W.PC.ACHO ---
Registration Status: ADM IN Primary Language: Salvadorean Preferred Language: Salvadorean Active Medications Generic Name Dose Route Start Last Admin Trade Name Freq PRN Reason Stop Dose Admin Acetaminophen 650 mg 09/10/23 16:29 Acetaminophen 325 Mg Tablet PO Q6H PRN Mild Pain Al Hydroxide/Mg Hydroxide 2,400 mg 09/10/23 16:29 Magnesium Hydroxide 2,400 Mg/10 Ml Oral.Susp PO Q6H PRN Dyspepsia Benzocaine/Menthol 1 applic 09/10/23 16:29 Benzocaine/Menthol 85 Gram [place] Bottle TOPICAL Q2H PRN Pain Carboprost Tromethamine 250 mcg 09/09/23 17:58 Carboprost Tromethamine 250 Mcg/Ml 1 Ml Vial IM 09/11/23 17:58 Q15M PRN Bleeding Diphtheria/Pertussis/Tetanus Vacc 0.5 ml 09/12/23 09:00 Adacel Diph,Pertuss(Acell),Tet Vac/Pf 0.5 Ml Adult Syringe IM 09/12/23 09:01 .ONCE ONE Docusate Sodium 100 mg 09/11/23 09:00 Docusate Sodium 100 Mg Capsule PO BID JACKELINE Sodium Chloride 1,000 mls @ 125 mls/hr 09/10/23 07:15 09/10/23 13:32 Sodium Chloride 0.9% 1,000 Ml IV 125 mls/hr .Q8H JACKELINE Administration Measles/Mumps/Rubella Vaccine Live 0.5 ml 09/12/23 09:00 Measles,Mumps,Rubella Vacc/Pf 0.5 Ml Vial SQ 09/12/23 09:01 .ONCE ONE Methylergonovine Maleate 0.2 mg 09/09/23 17:58 Methylergonovine Maleate 0.2 Mg/Ml Ampule IM 09/11/23 17:58 ONCE PRN Uterine Contractility/Contract Methylergonovine Maleate 0.2 mg 09/09/23 17:58 Methylergonovine Maleate 0.2 Mg Tablet PO 09/11/23 17:58 Q4H PRN Uterine Contractility/Contract Misoprostol 600 mcg 09/09/23 17:58 Misoprostol 100 Mcg Tablet PO 09/11/23 17:58 ONCE PRN Uterine Bleeding Misoprostol 800 mcg 09/09/23 17:58 Misoprostol 100 Mcg Tablet SL 09/11/23 17:58 ONCE PRN Uterine Bleeding Misoprostol 1,000 mcg 09/09/23 17:58 Misoprostol 100 Mcg Tablet OK 09/11/23 17:58 ONCE PRN Uterine Bleeding Ondansetron HCl 4 mg 09/09/23 17:58 Ondansetron Pf 4 Mg/2 Ml Vial IV Q6H PRN Nausea And Vomiting Ondansetron HCl 4 mg 09/09/23 17:58 Ondansetron 4 Mg Rapdis Tablet SL Q6H PRN Nausea And Vomiting Oxytocin 10 unit 09/09/23 17:58 Oxytocin 10 Unit/Ml Vial IM 09/11/23 17:58 ONCE PRN Bleeding Senna 17.2 mg 09/10/23 20:00 Sennosides 8.6 Mg Tablet PO QHS PRN Constipation Simethicone 80 mg 09/10/23 16:29 Simethicone 80 Mg Tab.Chew PO QID PRN Abdominal Distention Temazepam 15 mg 09/10/23 16:29 Temazepam 15 Mg Capsule PO QHS PRN Sleep Witch Pamela/Glycerin 1 pad 09/10/23 16:29 Glycerin/Witch Pamela Pads TOPICAL Q2H PRN Pain Diet Category Date Time Status Regular Consistency Diet Diet 09/10/23 16:29 Active Respiratory Oxygen Delivery Method Room Air Oxygen Delivery Method Room Air Oxygen Delivery Method Room Air Oxygen Delivery Method Room Air Cardiology Heart Sounds Strong,Regular Heart Sounds Strong,Regular Renal Bladder Pattern Continent Bladder Pattern Continent
[2023-09-11 08:40] VITALS: BP 123/88; PULSE 88; RESP 16; TEMP 36.9
[2023-09-11 08:41] VITALS: BP 123/75; PULSE 88
[2023-09-11] MEDS: ACETAMINOPHEN 325 MG TABLET 650 MG PO ×3 (08:43→22:13)
[2023-09-11] MEDS: DOCUSATE SODIUM 100 MG CAPSULE PO (08:43)
[2023-09-11 16:15] VITALS: BP 115/74; PULSE 93; RESP 16; TEMP 36.9
[2023-09-11 16:16] VITALS: BP 115/74; PULSE 93
[2023-09-12] VITALS (7 sets, daily range): BP systolic 107–125; BP diastolic 62–82; PULSE 64–82; RESP 16–18; TEMP 36.2–36.6
--- NOTE | 2023-09-12 07:24 | W.PC.ACHO ---
Registration Status: ADM IN Primary Language: Malaysian Preferred Language: Malaysian Active Medications Generic Name Dose Route Start Last Admin Trade Name Freq PRN Reason Stop Dose Admin Acetaminophen 650 mg 09/10/23 16:29 09/11/23 22:13 Acetaminophen 325 Mg Tablet PO 650 mg Q6H PRN Administration Mild Pain Al Hydroxide/Mg Hydroxide 2,400 mg 09/10/23 16:29 Magnesium Hydroxide 2,400 Mg/10 Ml Oral.Susp PO Q6H PRN Dyspepsia Benzocaine/Menthol 1 applic 09/10/23 16:29 Benzocaine/Menthol 85 Gram [place] Bottle TOPICAL Q2H PRN Pain Diphtheria/Pertussis/Tetanus Vacc 0.5 ml 09/12/23 09:00 Adacel Diph,Pertuss(Acell),Tet Vac/Pf 0.5 Ml Adult Syringe IM 09/12/23 09:01 .ONCE ONE Docusate Sodium 100 mg 09/11/23 09:00 09/11/23 22:13 Docusate Sodium 100 Mg Capsule PO Not Given BID JACKELINE Sodium Chloride 1,000 mls @ 125 mls/hr 09/10/23 07:15 09/10/23 13:32 Sodium Chloride 0.9% 1,000 Ml IV 125 mls/hr .Q8H JACKELINE Administration Measles/Mumps/Rubella Vaccine Live 0.5 ml 09/12/23 09:00 Measles,Mumps,Rubella Vacc/Pf 0.5 Ml Vial SQ 09/12/23 09:01 .ONCE ONE Ondansetron HCl 4 mg 09/09/23 17:58 Ondansetron Pf 4 Mg/2 Ml Vial IV Q6H PRN Nausea And Vomiting Ondansetron HCl 4 mg 09/09/23 17:58 Ondansetron 4 Mg Rapdis Tablet SL Q6H PRN Nausea And Vomiting Senna 17.2 mg 09/10/23 20:00 Sennosides 8.6 Mg Tablet PO QHS PRN Constipation Simethicone 80 mg 09/10/23 16:29 Simethicone 80 Mg Tab.Chew PO QID PRN Abdominal Distention Temazepam 15 mg 09/10/23 16:29 Temazepam 15 Mg Capsule PO QHS PRN Sleep Witch Pamela/Glycerin 1 pad 09/10/23 16:29 Glycerin/Witch Pamela Pads TOPICAL Q2H PRN Pain Respiratory Oxygen Delivery Method Room Air Oxygen Delivery Method Room Air Oxygen Delivery Method Room Air Oxygen Delivery Method Room Air Cardiology Heart Sounds Strong,Regular Bowels Date of Last Bowel Movement 09/11/22
--- NOTE | 2023-09-12 10:28 | PM.OBPN ---
OB - PN: Subj Subjective Patient comments: no complaints and pain well controlled [place] status: doing well Exam Constitutional Vital Signs, click to edit/add: Last Vital Signs Temp 97.2 F L 09/12/23 08:26 Pulse 64 09/12/23 08:27 Resp 16 09/12/23 08:20 BP 125/80 09/12/23 08:27 O2 Del Method Room Air 09/12/23 08:20 Documenting provider has reviewed patient's vital signs: yes Common normals: no apparent distress Respiratory Common normals: normal respiratory effort and clear to auscultation bilaterally Cardio Common normals: regular rate and regular rhythm GI Common normals: Normal to inspection, nondistended, normoactive bowel sounds present Extremity Common normals: no clubbing, cyanosis or edema OB - PN: A/P Plan - Vaginal Delivery day: 1 Plan: routine care, discharge home and follow up 6 weeks Time Spent with Patient Time: Total time spent is greater than 50% in coordination of care (as documented) at patient's floor/unit and/or counseling patient: Total time spent with greater than 50% in coordination of care (as documented) at patient's floor/unit and/or counseling patient: less than 15 minutes
== END 2023-09-12 19:06 | disposition home or self-care (01) | DRG 807 ==
PROVIDERS: Admitting Provider Obstetrics & Gynecology; Visit Provider Obstetrics & Gynecology
DX: O80 Encounter for full-term uncomplicated delivery (principal); Z37.0 Single live birth; Z3A.39 39 weeks gestation of pregnancy; Z86.32 Personal history of gestational diabetes
CPT/HCPCS: 36415; 51702; 59050; 59410; 80307; 85025; 85027; 86850; 86900; 86901; 96374; J2795; J3010

== ENCOUNTER 2023-09-13 08:35 | Outpatient (OUT) | payer BC, SELFPAY ==
--- OUTSIDE RECORDS SUMMARY | 2023-09-13 08:43 | XMS_ITS | CCD ---
Author Name Unknown Address [phone] [place] [address] Organization [facility] Care Team Providers Care Room Service Supervisor Name Role Phone TRISTIN CALDERÓN Unavailable Unavailable [...] (COVID-19) RNA CASSIE+probe Ql (Unsp spec) Negative [employer] Other Ambulatory Patient Education on 08-09-2019 Ambulatory [...] breast self-examination (BSE). These experts include the [place] [employer], the [place] Preventive Services Task Force, and the [place] [employer] Gynec[employer]. Some experts [...] This means they are not cancer. ? [id number] [employer]. [address] [place] [address], [place] [address]. All rights reserved. This information is not intended as a substitute for professional medical care. Always follow your healthcare professional's instructions. Normal [facility] Urinalysis w/ Microon 2017 ----- Normal [facility] Comment on above: Performed By: #### U AMIC ####[address] [place] [address] Acetaminophen mass conc Negative Normal NEG [facility] Comment on above: Performed By: #### U AMIC ####[address] [place] [address] Bilirubin (direct) Negative Normal NEG [facility] Comment on above: Performed By: #### U AMIC ####[address] [place] [address] Hemoglobin mass conc (Bld) Negative Normal NEG [facility] Comment on above: Performed By: #### U AMIC ####[address] [place] [address] Mucus Strands TRACE Abnormal [facility] Comment on above: Performed By: #### U AMIC ####[address] [place] [address] Nitrite,Ur Negative Normal NEG [facility] Comment on above: Performed By: #### U AMIC ####[address] [place] [address] Turbidity CLEAR Normal CLEAR [facility] Comment on above: Performed By: #### U AMIC ####[address] [place] [address] Urine WBC's 0 TO 2 Normal 0-5 [facility] Comment on above: Performed By: #### U AMIC ####[address] [place] [address] Urine, amorphous sediment presence in sediment TRACE Abnormal [facility] Comment on above: Performed By: #### U AMIC ####[address] [place] [address] Urine, bacteria in sediment TRACE Abnormal NONE [facility] Comment on above: Performed By: #### U AMIC ####[address] [place] [address] Urine, color YELLOW Normal YEL [facility] Comment on above: Performed By: #### U AMIC ####[address] [place] [address] Urine, epithelial cells in sediment 0 TO 2 Normal 0-25 [facility] Comment on above: Performed By: #### U AMIC ####[address] [place] [address] Urine, erythrocytes 0 TO 2 Normal 0-2 [facility] Comment on above: Performed By: #### U AMIC ####[address] [place] [address] Urine, glucose presence Negative Normal NEG [facility] Comment on above: Performed By: #### U AMIC ####[address] [place] [address] Urine, leukocyte esterase presence Negative Normal NEG [facility] Comment on above: Performed By: #### U AMIC ####[address] [place] [address] Urine, pH 6.5 [pH] Normal 5.0-9.0 [facility] Comment on above: Performed By: #### U AMIC ####[address] [place] [address] Urine, protein presence Negative Normal NEG [facility] Comment on above: Performed By: #### U AMIC ####[address] [place] [address] Urine, specific gravity 1.025 High 1.010-1.020 [facility] Comment on above: Performed By: #### U AMIC ####[address] [place] [address] Urobilinogen,Ur Normal Normal NORM [facility] Comment on above: Performed By: #### U AMIC ####[address] [place] [address] Comment NOT REPORTED Normal [facility] Comment on above: Performed By: #### U AMIC ####[address] [place] [address] Epithelial, Renal NOT REPORTED Normal 0 [facility] Comment on above: Performed By: #### U AMIC ####[address] [place] [address] Other Observations NOT REPORTED Normal NREQ [facility] Comment on above: Performed By: #### U AMIC ####[address] [place] [address] Trichomonas NOT REPORTED Normal NONE [facility] Comment on above: Performed By: #### U AMIC ####[address] [place] [address] Urine, casts in sediment NOT REPORTED Normal [facility] Comment on above: Performed By: #### U AMIC ####[address] [place] [address] Urine, crystals in sediment NOT REPORTED Normal NONE [facility] Comment on above: Performed By: #### U AMIC ####[address] [place] [address] Urine, yeast presence in sediment NOT REPORTED Normal NONE [facility] Comment on above: Performed By: #### U AMIC ####[address] [place] [address] Encounters Encounter Date Encounter Type Care Provider Facility Start: 09-02-2023 End: 09-02-2023 ambulatory MAURO GONZALEZ Not Available Start: 04-08-2022 End: 04-08-2022 ambulatory Cyndy Morelos Other [employer] Other Start: 04-08-2022 Office outpatient vi sit 15 minutes Cyndy Morelos [facility] Start: 03-03-2018 End: 03-04-2018 [facility] Procedures Date Procedure Procedure Detail Performing Clinician Start: 03-03-2018 DISCHARGE PATIENT CARLOTA CALDERÓN Start: 03-03-2018 Urnls dip stick/tabl et reagent auto microscopy TRISTIN ACLDERÓN Start: 03-03-2018 ASSESS HEART TONES TRISTIN CALDERÓN Start: 03-03-2018 PATIENT STATUS (DIRECT) TRISTIN CALDERÓN Start: 03-03-2018 VAGINAL EXAM TRISTIN WHITLOCK Payers Date Payer Category Payer [facility] [id number] 1990 Unknown [id number] Social History Date Type Detail Facility Sex Assigned At [employer] [employer] Other Evaluation note 04-08-2022 Note Date & [...] Patient care instructions given in writing by [facility] document. [employer] Other Summary Purpose Family History No Family History Records FoundNo Family History Records FoundNo Family History Records Found Advance Directives No Advanced Directives Records FoundNo Advanced Directives Records FoundNo Advanced Directives Records Found Additional Source Comments INFORMATION SOURCE (unrecogn ized section and content) DATE CREATED AUTHOR 03/03/2018 Kelsey Gilliam pitannable DATE CREATED AUTHOR AUTHOR'S ORGANIZ ATION 08/15/2019 [facility] DATE CREATED AUTHOR AUTHOR'S ORGANIZ ATION 09/04/2023 [facility] EPIC REASON FOR VISIT (unrecogniz [...] BE BASED ON THE PRIMARY CLINICAL RECORDS. [facility] provides no warranty or guarantee of the accuracy or completeness of information in this document.
--- NOTE | 2023-09-13 14:14 | PC.NURSE ---
Marleen and 4 day old Ozzy arrive for follow up. Mom reports doing well, has shallow latch at times and will not open mouth for latch but has seen some improvement last day. Ozzy assessed and all WNL. VVS and reported outputs are above expectations Marleen's assessment WNL and VVS as well. Noted to have 1 small blister on each nipple. Reviewed care of breasts, given lanolin and soothies for care with instructions. Baby to breast in cradle hold per mom, difficult latch as infant does not have support of neck to latch deeply. Reviewed latch and positioning, demo with cross cradle hold and deeper latch, mom pleased discomfort gone with deeper latch. Baby nurses well for 22 minutes with multiple swallows. Mom practiced latching independently and does well. Hand out for asymmetrical latch given and no further concerns voiced. Mom will schedule appointment with PCP when office is open 09/14/2023. Aware to call for questions or concerns as needed.
[2023-09-13 14:20] VITALS: BP 132/88; PULSE 82; RESP 16; TEMP 36.4; O2SAT 97
== END 2023-09-13 11:15 | disposition home or self-care (01) ==
PROVIDERS: Visit Provider Obstetrics & Gynecology
DX: Z39.2 Encounter for routine postpartum follow-up (principal)